=== PATIENT | male | born 1955 | race Caucasian/White ===

== ENCOUNTER 2017-01-11 12:22 | Emergency (ER) | payer SELFPAY ==
[~2017-01-11] VITALS: Ht 170.2 cm; Wt 88.6 kg
[2017-01-11 15:05] VITALS: BP 138/80
[2017-01-11] MEDS ORDERED: KETOROLAC TROMETHAMINE 60 MG/2 ML VIAL IM ONE (15:15)
[2017-01-11] MEDS ORDERED: METHOCARBAMOL 500 MG TABLET PO ONE (15:15)
== END 2017-01-11 15:46 | disposition home or self-care (01) ==
LOC: EMS 12:24
DX: M54.31 Sciatica, right side (principal); F17.210 Nicotine dependence, cigarettes, uncomplicated
CPT/HCPCS: 96372; 99283; J1885